=== PATIENT | female | born 1980 | race Caucasian/White ===

== ENCOUNTER → 2023-11-16 | Outpatient (CLI) | payer BC ==
[~2023-11-16] MED LIST: COLACE 100100 MG/CAP PO; IBU600 MG PO; IBU800 M1 PO; MAGNESIUM200 MG PO; PRENATAL MVI; ZYRTEC 10MG10 MG PO
== END ==
LOC: MC.RAD 08:03
DX: Z12.31 Encounter for screening mammogram for malignant neoplasm of breast (principal)